=== PATIENT | female | born 1935 | race Caucasian/White ===

== ENCOUNTER 2018-02-03 13:20 | Emergency (ER) | payer BC ==
[~2018-02-03] VITALS: Ht 149.9 cm; Wt 47.2 kg
[2018-02-03 13:20] VITALS: BP_SYST 169
[~2018-02-03 13:20] MED LIST: ARI1 PO; CLOP75TA2 PO; LISI-209 PO; METO25TA6 PO; SIMV20TA2 PO
[2018-02-03] MEDS ORDERED: LIDOCAINE/EPI 2% 1:100000 20 ML VIAL INJ ONE (13:45)
[2018-02-03] MEDS ORDERED: DIPH-TET Vacc 0.5 ML VIAL I.M. ONE (13:45)
[2018-02-03] MEDS ORDERED: BACITRACIN 1 GM OINT TP ONE (14:21)
[2018-02-03 15:05] VITALS: BP_SYST 143
== END 2018-02-03 15:05 | disposition home or self-care (01) ==
LOC: SED 13:20
DX: S81.811A Laceration without foreign body, right lower leg, initial encounter (principal); J45.909 Unspecified asthma, uncomplicated; I10 Essential (primary) hypertension; Z86.73 Personal history of transient ischemic attack (TIA), and cerebral infarction without residual deficits; Z85.3 Personal history of malignant neoplasm of breast; Z88.5 Allergy status to narcotic agent; Z88.0 Allergy status to penicillin
CPT/HCPCS: 90714; 99283

== ENCOUNTER 2022-03-20 14:09 | Emergency (ER) | payer BC, OTHER ==
[~2022-03-20] VITALS: Ht 149.9 cm; Wt 54.4 kg
[~2022-03-20 14:09] MED LIST changes: +ANAS1TAB51 PO; -ARI1 PO; +SIMV-343 PO; -SIMV20TA2 PO
[2022-03-20 14:15] VITALS: BP_SYST 115
--- NOTE | 2022-03-20 14:20 | NUR ---
Placed in room 6 . Placed on potline monitor, blood pressure machine and pulse oximeter. To gown for exam. Side rails up. Report given to SHILOH THOMPSON.
[2022-03-20] MEDS ORDERED: HYDR-3917 PO (14:21)
[2022-03-20] MEDS ORDERED: IBUP-1969 PO (14:21)
--- NOTE | 2022-03-20 14:24 | NUR ---
Pt was MELI MOTTA after a syncopal episode was witnessed by a neighbor while they were sitting down for breakfast. Pt has a hx of Afib, syncopal episodes and has been under consideration for placement of pacemaker. Pt is currently wearing a watchmen monitor and was told by roustabout hand that pacemaker placement is undecided. Daughter states pt was recently at [facility] for same complaints and doctors change medication only to change it back. Pt is A&Ox4, calm and cooperative, in no acute distress. Will continue to monitor and provide care as ordered.
--- NOTE | 2022-03-20 14:35 | NUR ---
ER Dr. Zazueta at bedside examining patient.
[2022-03-20] MEDS ORDERED: NACL 0.9% 1,000 ML IV ONE (14:45)
[2022-03-20 15:09] LABS: BASOPHILS % (AUTO) 0.5 % (0.0-2.0); EOSINOPHILS # (AUTO) 0.1 K/uL (0.0-0.4); EOSINOPHILS % (AUTO) 1.8 % (0.0-4.0); HEMATOCRIT 24.8 % (36-48); LYMPHOCYTES # (AUTO) 0.9 K/uL (1.0-5.5); LYMPHOCYTES % (AUTO) 15.1 % (20.5-51.5); MEAN CORPUSCULAR VOLUME 83 fL (79.0-98.0); MONOCYTES # (AUTO) 0.5 K/uL (0.0-1.0); NEUTROPHILS # (AUTO) 4.7 K/uL (1.8-7.7); NEUTROPHILS % (AUTO) 74.6 % (40.0-70.0); PLATELET COUNT (AUTO) 178 K/uL (130-430); RED BLOOD CELL COUNT(AUTO) 2.97 MIL/uL (4.2-6.2); RED CELL DISTRIBUTION WIDTH 16.2 % (9.0-15.0); WHITE BLOOD COUNT (AUTO) 6.2 K/uL (4.8-10.8)
[2022-03-20 16:09] LABS: ANION GAP 7 (5-15); CALCIUM 8.1 mg/dL (8.4-11.0); CHLORIDE 106 mmol/L (98-107); GLUCOSE 95 mg/dL (70-99); POTASSIUM 4.6 mmol/L (3.5-5.1); UREA NITROGEN, BLOOD 30 mg/dL (8-21)
[2022-03-20 16:17] LABS: ALANINE AMINOTRANSFERASE 13 U/L (12-78); ALBUMIN 2.6 g/dL (3.4-4.8); ASPARTATE AMINOTRANSFERASE 30 U/L (10-37); TOTAL BILIRUBIN 0.5 mg/dL (0.0-1.0)
--- NOTE | 2022-03-20 16:54 | NUR ---
Patient given written and verbal discharge instructions and verbalizes understanding. ER Dr. Marbin CARR discussed with patient the results and treatment provided. Patient in stable condition. ID arm band removed. IV catheter removed intact and dressing applied, no active bleeding. Patient educated on pain management and to follow up with PMD. Pain Scale 0/10. Opportunity for questions provided and answered. Medication side effect fact sheet provided.
== END 2022-03-20 16:54 | disposition home or self-care (01) ==
LOC: SED 14:09
DX: E86.0 Dehydration (principal); R55 Syncope and collapse; I10 Essential (primary) hypertension; J45.909 Unspecified asthma, uncomplicated; Z88.0 Allergy status to penicillin; Z88.5 Allergy status to narcotic agent; Z79.899 Other long term (current) drug therapy
CPT/HCPCS: 99285; 96360; 70450; 71045; 80053; 85025; 84484; 36415; 93005; 76376; 83605; J7030